=== PATIENT | female | born 1980 ===

== ENCOUNTER 2017-05-07 19:09 | Emergency (ER) | payer SELFPAY ==
[2017-05-07] MEDS ORDERED: Sodium Chloride 0.9% 1,000 ML IV ONE (20:01)
--- NOTE | 2017-05-07 20:38 | C.PDOC ---
History Of Present Illness 37 year old female who is 14 weeks presents to the ER with a complaint of lower pelvic pain and back pain for the last 4 hours. Patient has not had any care because she has recently arrived from [facility] [address]. Denies fever, chills, nausea, or vomiting. has been taking her vit Time Seen by Provider: 05/07/17 19:55 Chief Complaint (Nursing): Abdominal Pain History Per: Patient History/Exam Limitations: no limitations Onset/Duration Of Symptoms: Hrs Current Symptoms Are (Timing): Still Present Location Of Pain/Discomfort: Suprapubic Quality Of Discomfort: Unable To Describe Associated Symptoms: Back Pain. denies: Fever, Chills, Nausea, Vomiting Exacerbating Factors: None Alleviating Factors: None Recent travel outside of the [place]: Yes Abnormal Vaginal Bleeding: No Past Medical History Reviewed: Historical Data, Nursing Documentation, Vital Signs Vital Signs: Last Vital Signs Temp 98.1 F 05/07/17 19:18 Pulse 101 H 05/07/17 19:18 Resp 16 05/07/17 19:18 BP 91/59 L 05/07/17 19:18 Pulse Ox 98 05/07/17 23:03 - Medical History PMH: No Chronic Diseases Surgical History: No Surg Hx Family History: States: Unknown Family Hx - Social History Hx Alcohol Use: No Hx Substance Use: No Review Of Systems Constitutional: Negative for: Fever, Chills Gastrointestinal: Positive for: Abdominal Pain. Negative for: Nausea, Vomiting Musculoskeletal: Positive for: Back Pain Physical Exam - Physical Exam Appears: Non-toxic, Other (Mild distress) Skin: Normal Color, Warm, Dry Head: Atraumatic, Normacephalic Oral Mucosa: Moist Chest: Symmetrical, No Tenderness Cardiovascular: Rhythm Regular, No Murmur Respiratory: Normal Breath Sounds, No Rales, No Rhonchi, No Wheezing Gastrointestinal/Abdominal: Soft, No Tenderness, Other (Gravid) Neurological/Psych: Oriented x3, Normal Speech, Normal Cognition ED Course And Treatment - Laboratory Results Result Diagrams: 05/07/17 22:06 05/07/17 22:06 Lab Interpretation: Normal (quant hcg 53962, O+) Urine POC: Positive O2 Sat by Pulse Oximetry: 98 (Room air) Pulse Ox Interpretation: Normal - CT Scan/US Transvaginal US Other Rad Studies (CT/US): Read By Radiologist, Radiology Report Reviewed CT/US Interpretation: Impression: Single intrauterine with cardiac activity at approximately 15 weeks 3 days menstrual age. Recommend routine followup Progress Note: Blood work, urinalysis, and transvaginal US ordered. IV fluids administered. Reevaluation Time: 23:22 Reassessment Condition: Unchanged (remains stable,comfortable) Medical Decision Making Medical Decision Making: early preg, wnl Disposition Doctor Will See Patient In The: Office Counseled Patient/Family Regarding: Studies Performed, Diagnosis - Disposition Disposition: HOME/ ROUTINE Disposition Time: 23:23 Condition: GOOD - Clinical Impression Clinical Impression: - Scribe Statement The provider has reviewed the documentation as recorded by the Scribe Ivan Hummel All medical record entries made by the Scribe were at my direction and personally dictated by me. I have reviewed the chart and agree that the record accurately reflects my personal performance of the history, physical exam, medical decision making, and the department course for this patient. I have also personally directed, reviewed, and agree with the discharge instructions and disposition.
[2017-05-07 22:09] LABS: BASO % 0.7 % (0.0-2.0); EOS # 0.2 K/uL (0.0-0.7); EOS % 2.6 % (0.0-4.0); HEMOGLOBIN 11.8 g/dL (11.0-16.0); LYMPH # 1.3 K/uL (1.0-4.3); LYMPH % 21.1 % (20.0-40.0); MEAN CELL VOLUME 90.1 fL (81.0-99.0); MEAN CORPUSCULAR HEMOGLOBIN 30.7 pg (27.0-31.0); MEAN PLATELET VOLUME 8.8 fL (7.2-11.7); MONO # 0.6 K/uL (0.0-0.8); MONO % 10.4 % (0.0-10.0); NEUT # 4.1 K/uL (1.8-7.0); NEUT % 65.2 % (50.0-75.0); RBC 3.86 Mil/uL (3.80-5.20); RED CELL DISTRIBUTION WIDTH 12.6 % (11.5-14.5); WHITE BLOOD COUNT 6.3 K/uL (4.8-10.8)
[2017-05-07] MEDS ORDERED: Sodium Chloride 0.9% 1,000 ML ONE (22:14)
[2017-05-07 22:17] LABS: SQUAMOUS EPITHIAL 2 /hpf (0-5); URINE BILIRUBIN NEGATIVE (NEGATIVE); URINE BLOOD NEGATIVE (NEGATIVE); URINE CLARITY Hazy (Clear); URINE COLOR Yellow (YELLOW); URINE GLUCOSE (UA) 1+ mg/dL (Normal); URINE LEUKOCYTE ESTERASE NEG Leu/uL (Negative); URINE NITRATE NEGATIVE (NEGATIVE); URINE PROTEIN NEGATIVE (NEGATIVE); URINE UROBILINOGEN NORMAL mg/dL (0.2-1.0)
[2017-05-07 22:20] LABS: ALBUMIN 3.6 g/dL (3.5-5.0)
[2017-05-07 22:22] LABS: GFR AFRICAN-AMERICAN > 60; GFR NON-AFRICAN AMERICAN > 60
[2017-05-07 22:23] LABS: ALB/GLOB RATIO 1.1 (1.0-2.1); ALT/SGPT 28 U/L (9-52); AST/SGOT 19 U/L (14-36); BLOOD UREA NITROGEN 10 mg/dL (7-17)
[2017-05-07 22:24] LABS: CALCIUM 8.7 mg/dl (8.6-10.4)
--- NOTE | 2017-05-07 22:54 | US ---
History: 37 years old, female; Pain; complicated by abdominal or pelvic pain; Lower; Second trimester; Gestational age or lmp: 01/28/17; ; Additional info: 14 wks, pelvic and back pain Gender: female Age: 37 years Exam: US LTD ONE OR MORE FETUSES Comparison: Images obtained demonstrate presence of a single intrauterine at approximately 15 weeks 3 days menstrual age. Cardiac activity is present with a heart rate of 137 beats per minute. motion is demonstrated. Current presentation is transverse. Amniotic fluid appears appropriate. The placenta is anterior and free of the cervical os. Both ovaries were visualized and are normal. No free fluid. Impression: Single intrauterine with cardiac activity at approximately 15 weeks 3 days menstrual age. Recommend routine followup.
[2017-05-07 23:42] VITALS: BP 90/60; PULSE 84; RESP 18; TEMP 97.9; O2SAT 99
== END 2017-05-07 23:43 | disposition home or self-care (01) ==
LOC: C.ER 19:09
DX: O26.892 Other specified pregnancy related conditions, second trimester (principal); R10.2 Pelvic and perineal pain; M54.5 Low back pain; Z3A.15 15 weeks gestation of pregnancy
CPT/HCPCS: 76815; 80053; 81001; 84702; 85025; 86850; 86900; 96360; 99284; J7040